=== PATIENT | female | born 1950 | race Caucasian/White ===

== ENCOUNTER → 2018-03-21 | Outpatient (CLI) | payer MEDICARE, OTHER ==
[~2018-03-21] MED LIST: ACE3 PO; ASPI81TA94 PO; ATIVAN PO; CHOL200074 PO; ESOM40CA42 PO; ESTR-25 PO; HYDR-2966 PO; HYDR2TAB4 PO; IBUP-136 PO; IBUP800T37 PO; KET10 PO; LOR5/325 PO; MULT-1335 PO; NIAC250C17 PO; PERCOCET; PHYT100T4 PO; RANI-325 PO; RANI25TA2 PO
== END ==
LOC: RESP 20:31
PROVIDERS: ATTEND Family Medicine
DX: G47.33 Obstructive sleep apnea (adult) (pediatric) (principal); G47.36 Sleep related hypoventilation in conditions classified elsewhere; G47.61 Periodic limb movement disorder

== ENCOUNTER → 2018-04-01 | Outpatient (CLI) | payer MEDICARE, OTHER ==
--- NOTE | 2018-04-01 14:11 | RADIOLOGY IMAGING REPORT ---
FACILITY: [facility] - [place] PATIENT NAME: DALLIN CASSIDY : [id number] MR: [id number] V: [id number] EXAM DATE: [id number] ORDERING PHYSICIAN: ARIANA ASIF TECHNOLOGIST: Darlyn Andrews PROCEDURE:BILATERAL DIGITAL SCREENING MAMMOGRAM WITH CAD ASSISTED INTERPRETATION & 3D TOMOSYNTHESIS COMPARISON:Prior mammograms dated 05/09/16, 04/23/16, 03/22/15, 07/01/12, 06/24/12 INDICATIONS:screening FINDINGS: Scattered fibroglandular densities are seen throughout the breasts. The parenchymal pattern has remained stable allowing for difference in mammographic technique & patient positioning. DIAGNOSTIC CATEGORY 1--NEGATIVE. RECOMMENDATIONS: ROUTINE MAMMOGRAM AND CLINICAL EVALUATION. IMPRESSION: BIRADS 1: Negative. No significant abnormality is seen. Dictated by: Therese Vasquez M.D. on 04/01/2018 at 9:40 Transcribed by: BALA on 04/01/2018 at 12:51 Approved by: Therese Vasquez M.D. on 04/01/2018 at 14:10 [facility]
== END ==
LOC: MAMO 01:14
PROVIDERS: ATTEND Family Medicine
DX: Z12.31 Encounter for screening mammogram for malignant neoplasm of breast (principal)
CPT/HCPCS: 77063; 77067